=== PATIENT | male | born 1975 | race Caucasian/White ===

== ENCOUNTER 2020-04-21 23:56 | Observation (INO) ==
[2020-04-22 00:50] LABS: Basophils # 0.1 10*3/uL (0.0-0.2); Basophils % 0.6 % (0.0-0.8); Eosinophils # 0.1 10*3/uL (0.0-0.87); Eosinophils % 1.1 % (0.00-10.9); Hematocrit 43.8 VOL% (42.0-52.0); Hemoglobin 14.6 GM/DL (14.0-18.0); Immature Granulocytes % 0.6 %; Immature Granulocytes Absolute 0.07 #; Lymphocytes # 2.7 10*3/uL (1.4-4.0); Mean Corpuscular HGB Conc 33.3 GM/DL (32-36); Mean Corpuscular Volume 88.3 FL (87-102); Mean Platelet Volume 10.4 FL (9.6-12.0); Monocytes % 10.6 % (1.7-12.7); Neutrophils % 63.1 % (38.7-73.9); Platelet Count 246 T/CUMM (130-400); Red Blood Count 4.96 MC/CUMM (3.8-5.5); Red Cell Distribution Width 14.2 % (9.3-17.3); White Blood Count 11.3 T/CUMM (4-12)
[2020-04-22 01:12] LABS: Alanine Aminotransferase 88 U/L (16-61); Albumin 3.6 G/DL (3.4-5.0); Alkaline Phosphatase 103 U/L (45-117); Aspartate Amino Transferase 37 U/L (0-37); Bilirubin,Total < 0.39 MG/DL (0.2-1.0); Blood Urea Nitrogen 19 MG/DL (7-18); Calcium 9.4 MG/DL (8.5-10.1); Estimated Glom Filtration Rate 108 ML/MIN; Ferritin 91.7 ng/ml (26-388); Glucose 111 MG/DL (74-106); Osmolality,Calculated 277.7 MOS/KG (273-304); Total Protein 8.1 G/DL (6.4-8.3)
[2020-04-22] MEDS ORDERED: GLUCAGON 1 MG VIAL IM PRN (03:46)
[2020-04-22] MEDS ORDERED: NITROGLYCERIN SL 0.4 MG TABLET SL PRN (03:46)
[2020-04-22] MEDS ORDERED: ONDANSETRON 4 MG/2 ML VIAL IV PRN (03:46)
[2020-04-22] MEDS ORDERED: DEXTROSE 50% 25 GM/50 ML VIAL IV PRN (03:46)
[2020-04-22] MEDS ORDERED: POTASSIUM CHLORIDE 20 MEQ TABLET PO STA (03:46)
[2020-04-22] MEDS ORDERED: ALUM/MAG/SIMETH/LIDO VISC 1:1 30 ML BOTTLE PO STA (04:19)
[2020-04-22] MEDS ORDERED: SODIUM CHLORIDE 0.9% 100 ML IV ONE (04:46)
[2020-04-22] MEDS: cefTRIAXone 1,000 MG in SYRINGE 1 EACH IV SCH (05:04)
[2020-04-22 05:42] LABS: Barbiturates Screen,Urine Negative (Negative); Benzodiazepines Screen,Urine Negative (Negative); Cannabinoid Screen,Urine Negative (Negative); Opiate Screen,Urine Negative (Negative); Phencyclidine Screen,Urine Negative (Negative)
[2020-04-22] MEDS ORDERED: PNEUMOCOCCAL VACCINE (23 VALENT) 0.5 ML VIAL IM ONE (08:28)
[2020-04-22 09:28] LABS: Risk Ratio 5.59; Thyroid Stimulating Hormone 1.03 uIU/ml (0.358-3.74); VLDL CHOLESTEROL 19.4 MG/DL
[2020-04-22 09:36] LABS: Calcium 9.4 MG/DL (8.5-10.1); Osmolality,Calculated 284.3 MOS/KG (273-304)
[2020-04-22] MEDS: POTASSIUM CHLORIDE 20 MEQ TABLET PO PRN ×2 (10:31→13:41)
[2020-04-22] MEDS: ENOXAPARIN 40 MG/0.4 ML SYRINGE SUBCUT SCH (10:33)
[2020-04-22] MEDS ORDERED: ALBUTEROL/IPRATROPIUM 3 ML NEB RESP TX PRN (10:41)
[2020-04-22] MEDS ORDERED: ALBUTEROL 2.5 MG/3 ML NEB RESP TX PRN (10:41)
[2020-04-22] MEDS: [UNRECOGNIZED DRUG - OTHER] INH SCH (11:17)
[2020-04-22] MEDS ORDERED: METOPROLOL SUCCINATE XL 100 MG TABLET PO SCH (13:00)
[2020-04-22] MEDS ORDERED: predniSONE 20 MG TABLET PO SCH (13:00)
[2020-04-22] MEDS: ALBUTEROL/IPRATROPIUM 3 ML NEB RESP TX SCH ×2 (13:35→18:40)
[2020-04-22] MEDS: LOSARTAN 50 MG TABLET PO SCH (13:43)
[2020-04-22] MEDS: hydroCHLOROthiazide 12.5 MG CAPSULE PO SCH (13:44)
[2020-04-22] MEDS: ACETAMINOPHEN 325 MG TABLET PO PRN ×2 (14:19→21:01)
[2020-04-23] MEDS: ALBUTEROL/IPRATROPIUM 3 ML NEB RESP TX SCH ×4 (00:15→19:42)
[2020-04-23] MEDS: cefTRIAXone 1,000 MG in SYRINGE 1 EACH IV SCH (04:28)
[2020-04-23] MEDS ORDERED: methylPREDNISolone SOD SUC 40 MG/1 ML VIAL IV ONE (07:38)
[2020-04-23 07:58] LABS: Basophils # 0.1 10*3/uL (0.0-0.2); Basophils % 0.5 % (0.0-0.8); Eosinophils # 0.2 10*3/uL (0.0-0.87); Eosinophils % 1.9 % (0.00-10.9); Hematocrit 43.8 VOL% (42.0-52.0); Hemoglobin 14.6 GM/DL (14.0-18.0); Immature Granulocytes % 0.6 %; Immature Granulocytes Absolute 0.06 #; Lymphocytes % 19.1 % (21.2-54.2); Mean Corpuscular HGB Conc 33.3 GM/DL (32-36); Mean Platelet Volume 10.4 FL (9.6-12.0); Monocytes % 8.7 % (1.7-12.7); Neutrophils % 69.2 % (38.7-73.9); Platelet Count 232 T/CUMM (130-400); Red Blood Count 4.98 MC/CUMM (3.8-5.5); Red Cell Distribution Width 14.5 % (9.3-17.3); White Blood Count 10.2 T/CUMM (4-12)
[2020-04-23] MEDS ORDERED: methylPREDNISolone SOD SUC 40 MG/1 ML VIAL IV SCH (08:00)
[2020-04-23 08:17] LABS: Calcium 9.1 MG/DL (8.5-10.1); Osmolality,Calculated 281.4 MOS/KG (273-304)
[2020-04-23 08:22] LABS: Troponin I < 0.015 NG/ML (0.00-0.045)
[2020-04-23] MEDS: [UNRECOGNIZED DRUG - OTHER] INH SCH (08:45)
[2020-04-23] MEDS: LOSARTAN 50 MG TABLET PO SCH (08:56)
[2020-04-23] MEDS: ACETAMINOPHEN 325 MG TABLET PO PRN ×2 (08:56→20:34)
[2020-04-23] MEDS: POTASSIUM CHLORIDE 20 MEQ TABLET PO SCH (08:56)
[2020-04-23] MEDS: hydroCHLOROthiazide 12.5 MG CAPSULE PO SCH (08:58)
[2020-04-23] MEDS: COENZYME Q10 100 MG CAPSULE PO SCH (08:58)
[2020-04-23] MEDS: MONTELUKAST 10 MG TABLET PO SCH (08:58)
[2020-04-23] MEDS: MULTIVITAMIN (CENTRUM) TABLET PO SCH (08:58)
[2020-04-23] MEDS: ENOXAPARIN 40 MG/0.4 ML SYRINGE SUBCUT SCH (09:01)
[2020-04-23] MEDS ORDERED: ALPRAZolam 0.25 MG TABLET PO PRN (10:46)
[2020-04-23] MEDS ORDERED: hydrALAZINE 20 MG/1 ML VIAL IV PRN (11:02)
[2020-04-23] MEDS: DOXYCYCLINE HYCLATE 100 MG CAPSULE PO SCH ×2 (11:10→20:34)
[2020-04-23 11:53] LABS: ABG Base Excess 0.6 MMOL/L (-2.5-2.5); ABG Oxygen Saturation 99.3 % (95-100); ABG PCO2 25.3 MM HG (35-48); ABG PH 7.537 (7.35-7.45)
[2020-04-23] MEDS ORDERED: DOCUSATE SODIUM 100 MG CAPSULE PO PRN (20:07)
[2020-04-24] MEDS: ACETAMINOPHEN 325 MG TABLET PO PRN ×3 (00:34→22:35)
[2020-04-24] MEDS: ALBUTEROL/IPRATROPIUM 3 ML NEB RESP TX SCH ×4 (02:34→20:26)
[2020-04-24] MEDS: cefTRIAXone 1,000 MG in SYRINGE 1 EACH IV SCH (05:06)
[2020-04-24 08:12] LABS: Basophils # 0.1 10*3/uL (0.0-0.2); Basophils % 0.4 % (0.0-0.8); Eosinophils # 0.1 10*3/uL (0.0-0.87); Eosinophils % 0.7 % (0.00-10.9); Hematocrit 41.6 VOL% (42.0-52.0); Hemoglobin 13.9 GM/DL (14.0-18.0); Immature Granulocytes % 0.8 %; Immature Granulocytes Absolute 0.09 #; Lymphocytes # 2.5 10*3/uL (1.4-4.0); Lymphocytes % 21.1 % (21.2-54.2); Mean Corpuscular HGB Conc 33.4 GM/DL (32-36); Mean Corpuscular Volume 86.7 FL (87-102); Mean Platelet Volume 10.7 FL (9.6-12.0); Monocytes % 8.7 % (1.7-12.7); Neutrophils % 68.3 % (38.7-73.9); Platelet Count 218 T/CUMM (130-400); Red Cell Distribution Width 14.3 % (9.3-17.3); White Blood Count 11.8 T/CUMM (4-12)
[2020-04-24 08:36] LABS: Calcium 9.5 MG/DL (8.5-10.1); Osmolality,Calculated 280.4 MOS/KG (273-304)
[2020-04-24] MEDS: ENOXAPARIN 40 MG/0.4 ML SYRINGE SUBCUT SCH (09:43)
[2020-04-24] MEDS: [UNRECOGNIZED DRUG - OTHER] INH SCH (09:43)
[2020-04-24] MEDS: MONTELUKAST 10 MG TABLET PO SCH (09:44)
[2020-04-24] MEDS: POTASSIUM CHLORIDE 20 MEQ TABLET PO SCH (09:44)
[2020-04-24] MEDS: hydroCHLOROthiazide 12.5 MG CAPSULE PO SCH (09:44)
[2020-04-24] MEDS: LOSARTAN 50 MG TABLET PO SCH (09:44)
[2020-04-24] MEDS: predniSONE 20 MG TABLET PO SCH ×2 (09:45→20:43)
[2020-04-24] MEDS: MULTIVITAMIN (CENTRUM) TABLET PO SCH (09:45)
[2020-04-24] MEDS: COENZYME Q10 100 MG CAPSULE PO SCH (09:45)
[2020-04-24] MEDS: DOXYCYCLINE HYCLATE 100 MG CAPSULE PO SCH ×2 (09:46→20:43)
[2020-04-24] MEDS: FLUTICASONE/SALMETEROL 250-50 DISKUS 14 DOSE INH SCH (20:42)
[2020-04-25] MEDS: ALBUTEROL/IPRATROPIUM 3 ML NEB RESP TX SCH ×2 (00:42→08:24)
[2020-04-25] MEDS: cefTRIAXone 1,000 MG in SYRINGE 1 EACH IV SCH (05:01)
[2020-04-25 05:39] LABS: Calcium 9.4 MG/DL (8.5-10.1); Osmolality,Calculated 284.4 MOS/KG (273-304)
[2020-04-25] MEDS: ENOXAPARIN 40 MG/0.4 ML SYRINGE SUBCUT SCH (08:59)
[2020-04-25] MEDS: COENZYME Q10 100 MG CAPSULE PO SCH (09:00)
[2020-04-25] MEDS: hydroCHLOROthiazide 12.5 MG CAPSULE PO SCH (09:00)
[2020-04-25] MEDS: predniSONE 20 MG TABLET PO SCH (09:01)
[2020-04-25] MEDS: MULTIVITAMIN (CENTRUM) TABLET PO SCH (09:01)
[2020-04-25] MEDS: POTASSIUM CHLORIDE 20 MEQ TABLET PO SCH (09:01)
[2020-04-25] MEDS: LOSARTAN 50 MG TABLET PO SCH (09:01)
[2020-04-25] MEDS: MONTELUKAST 10 MG TABLET PO SCH (09:01)
[2020-04-25] MEDS: [UNRECOGNIZED DRUG - OTHER] INH SCH (09:02)
[2020-04-25] MEDS: FLUTICASONE/SALMETEROL 250-50 DISKUS 14 DOSE INH SCH (09:02)
[2020-04-25] MEDS: DOXYCYCLINE HYCLATE 100 MG CAPSULE PO SCH (09:20)
[2020-04-25 12:46] VITALS: BP 138/69
== END 2020-04-25 14:00 | disposition home or self-care (01) ==
LOC: N.ED 23:56 → N.EDINP 23:56 → SUATTDRO 04-22 03:46 → N.TELES 04-22 07:31
PROVIDERS: ADMIT Emergency Medicine; ATTEND Internal Medicine

== ENCOUNTER 2020-11-26 15:00 | Inpatient (IN) ==
[2020-11-26] MEDS ORDERED: NITROGLYCERIN SL 0.4 MG TABLET SL PRN ×2 (15:25→17:50)
[2020-11-26 15:45] LABS: Basophils # 0.1 10*3/uL (0.0-0.2); Basophils % 1.1 % (0.0-0.8); Eosinophils # 0.2 10*3/uL (0.0-0.87); Eosinophils % 2.4 % (0.00-10.9); Hematocrit 44.7 VOL% (42.0-52.0); Hemoglobin 14.9 GM/DL (14.0-18.0); Immature Granulocytes % 0.5 %; Immature Granulocytes Absolute 0.04 #; Lymphocytes # 1.9 10*3/uL (1.4-4.0); Lymphocytes % 23.2 % (21.2-54.2); Mean Corpuscular HGB Conc 33.3 GM/DL (32-36); Mean Corpuscular Volume 87.8 FL (87-102); Mean Platelet Volume 9.8 FL (9.6-12.0); Monocytes % 9.9 % (1.7-12.7); Neutrophils % 62.9 % (38.7-73.9); Platelet Count 212 T/CUMM (130-400); Red Blood Count 5.09 MC/CUMM (3.8-5.5); Red Cell Distribution Width 13.9 % (9.3-17.3); White Blood Count 8.3 T/CUMM (4-12)
[2020-11-26 16:09] LABS: INR 1.1; PT Patient Result 12.1 SECS (9.8-11.9)
[2020-11-26 16:21] LABS: Albumin 3.4 G/DL (3.4-5.0); Bilirubin,Total 0.7 MG/DL (0.2-1.0); Calcium 9.3 MG/DL (8.5-10.1); Osmolality,Calculated 272.8 MOS/KG (273-304); Potassium 3.2 MMOL/L (3.5-5.1); Total Protein 7.9 G/DL (5.0-7.5)
[2020-11-26] MEDS ORDERED: POTASSIUM CHLORIDE 20 MEQ TABLET PO STA (16:57)
[2020-11-26] MEDS ORDERED: GLUCAGON 1 MG VIAL IM PRN (17:44)
[2020-11-26] MEDS ORDERED: DEXTROSE 50% 25 GM/50 ML VIAL IV PRN (17:44)
[2020-11-26] MEDS ORDERED: hydrALAZINE 20 MG/1 ML VIAL IV PRN (17:52)
[2020-11-26] MEDS: ENOXAPARIN 40 MG/0.4 ML SYRINGE SUBCUT SCH (22:43)
[2020-11-26] MEDS: ALBUTEROL 2.5 MG/3 ML NEB RESP TX PRN (22:44)
[2020-11-27 06:11] LABS: Basophils # 0.1 10*3/uL (0.0-0.2); Basophils % 0.8 % (0.0-0.8); Eosinophils # 0.2 10*3/uL (0.0-0.87); Eosinophils % 2.8 % (0.00-10.9); Hematocrit 44.2 VOL% (42.0-52.0); Immature Granulocytes % 0.8 %; Immature Granulocytes Absolute 0.06 #; Lymphocytes # 2.2 10*3/uL (1.4-4.0); Lymphocytes % 27.7 % (21.2-54.2); Mean Corpuscular HGB Conc 33.9 GM/DL (32-36); Mean Corpuscular Volume 87.2 FL (87-102); Mean Platelet Volume 10.6 FL (9.6-12.0); Monocytes % 11.3 % (1.7-12.7); Neutrophils % 56.6 % (38.7-73.9); Platelet Count 180 T/CUMM (130-400); Red Blood Count 5.07 MC/CUMM (3.8-5.5); Red Cell Distribution Width 14.1 % (9.3-17.3); White Blood Count 7.8 T/CUMM (4-12)
[2020-11-27 06:56] LABS: Calcium 9.3 MG/DL (8.5-10.1); Osmolality,Calculated 281.4 MOS/KG (273-304); Potassium 3.4 MMOL/L (3.5-5.1); Risk Ratio 5.71; Thyroid Stimulating Hormone 1.1 uIU/ml (0.358-3.74); VLDL CHOLESTEROL 25.6 MG/DL
[2020-11-27] MEDS: ALBUTEROL 2.5 MG/3 ML NEB RESP TX PRN ×2 (08:04→13:40)
[2020-11-27] MEDS ORDERED: hydroCHLOROthiazide 12.5 MG CAPSULE PO SCH (09:00)
[2020-11-27] MEDS ORDERED: POTASSIUM CHLORIDE 10 MEQ TABLET PO SCH (09:00)
[2020-11-27] MEDS ORDERED: METOPROLOL SUCCINATE XL 100 MG TABLET PO SCH (09:00)
[2020-11-27] MEDS ORDERED: LOSARTAN 50 MG TABLET PO SCH (09:00)
[2020-11-27] MEDS ORDERED: NON-FORMULARY MEDICATION (Fluticasone Furoate-Vilanterol [Breo Ellipta] 200-25 mcg/dose Bl INH SCH (09:00)
[2020-11-27] MEDS: POTASSIUM CHLORIDE 20 MEQ TABLET PO SCH (09:42)
[2020-11-27] MEDS: PANTOPRAZOLE 40 MG TABLET PO SCH (09:42)
[2020-11-27] MEDS: FUROSEMIDE 20 MG TABLET PO SCH (09:42)
[2020-11-27] MEDS: COENZYME Q10 100 MG CAPSULE PO SCH (09:42)
[2020-11-27] MEDS: METHOCARBAMOL 750 MG TABLET PO SCH (09:43)
[2020-11-27] MEDS: ASPIRIN EC 81 MG TABLET PO SCH (09:43)
[2020-11-27] MEDS: MONTELUKAST 10 MG TABLET PO SCH (09:43)
[2020-11-27] MEDS ORDERED: POTASSIUM CHLORIDE 20 MEQ TABLET PO ONE (16:37)
[2020-11-27] MEDS ORDERED: MAGNESIUM HYDROXIDE SUSP 30 ML UDCUP PO PRN ×2 (17:31→17:37)
[2020-11-27] MEDS: FLUTICASONE/SALMETEROL 250-50 DISKUS 14 DOSE INH SCH ×2 (17:32→21:05)
[2020-11-27] MEDS ORDERED: ALBUTEROL/IPRATROPIUM 3 ML NEB RESP TX PRN (17:46)
[2020-11-27] MEDS: ALBUTEROL/IPRATROPIUM 3 ML NEB RESP TX SCH (19:05)
[2020-11-27] MEDS: DORNASE ALFA 2.5 MG/2.5 ML VIAL RESP TX SCH (19:10)
[2020-11-27] MEDS: FAMOTIDINE 20 MG TABLET PO SCH (22:05)
[2020-11-27] MEDS: ENOXAPARIN 40 MG/0.4 ML SYRINGE SUBCUT SCH (22:06)
[2020-11-28] MEDS: ALBUTEROL/IPRATROPIUM 3 ML NEB RESP TX SCH ×4 (00:25→18:43)
[2020-11-28 06:02] LABS: Calcium 8.8 MG/DL (8.5-10.1); Potassium 3.7 MMOL/L (3.5-5.1)
[2020-11-28] MEDS: DORNASE ALFA 2.5 MG/2.5 ML VIAL RESP TX SCH ×2 (07:42→18:43)
[2020-11-28] MEDS: PANTOPRAZOLE 40 MG TABLET PO SCH (08:42)
[2020-11-28] MEDS: MONTELUKAST 10 MG TABLET PO SCH (08:42)
[2020-11-28] MEDS: MULTIVITAMIN (CENTRUM) TABLET PO SCH (08:43)
[2020-11-28] MEDS: COENZYME Q10 100 MG CAPSULE PO SCH (08:44)
[2020-11-28] MEDS: METHOCARBAMOL 750 MG TABLET PO SCH ×3 (08:44→21:21)
[2020-11-28] MEDS: ASPIRIN EC 81 MG TABLET PO SCH (08:44)
[2020-11-28] MEDS: FUROSEMIDE 20 MG TABLET PO SCH (08:45)
[2020-11-28] MEDS: POTASSIUM CHLORIDE 20 MEQ TABLET PO SCH (08:46)
[2020-11-28] MEDS: carvediloL 12.5 MG TABLET PO SCH ×2 (08:56→21:19)
[2020-11-28] MEDS: FLUTICASONE/SALMETEROL 250-50 DISKUS 14 DOSE INH SCH ×2 (08:57→21:21)
[2020-11-28] MEDS ORDERED: hydroCHLOROthiazide 12.5 MG CAPSULE PO SCH (09:00)
[2020-11-28] MEDS: MEROPENEM 500 MG in SODIUM CHLORIDE 0.9% 100 ML IV SCH ×2 (13:41→21:21)
[2020-11-28] MEDS ORDERED: SODIUM CHLORIDE 0.9% 500 ML IV ONE (14:59)
[2020-11-28] MEDS ORDERED: POTASSIUM CHLORIDE 20 MEQ TABLET PO ONE (15:00)
[2020-11-28] MEDS: FAMOTIDINE 20 MG TABLET PO SCH (21:19)
[2020-11-28] MEDS: ENOXAPARIN 40 MG/0.4 ML SYRINGE SUBCUT SCH (21:20)
[2020-11-29] MEDS: ALBUTEROL/IPRATROPIUM 3 ML NEB RESP TX SCH ×4 (01:13→20:13)
[2020-11-29] MEDS: MEROPENEM 500 MG in SODIUM CHLORIDE 0.9% 100 ML IV SCH ×4 (04:19→21:45)
[2020-11-29 06:13] LABS: PT Patient Result 10.9 SECS (9.8-11.9); Partial Thromboplastin Time 26.7 SECS (23.9-33.8)
[2020-11-29 06:14] LABS: Basophils # 0.1 10*3/uL (0.0-0.2); Basophils % 1.1 % (0.0-0.8); Eosinophils # 0.3 10*3/uL (0.0-0.87); Eosinophils % 4.6 % (0.00-10.9); Hematocrit 42.2 VOL% (42.0-52.0); Hemoglobin 14.1 GM/DL (14.0-18.0); Immature Granulocytes % 0.7 %; Immature Granulocytes Absolute 0.04 #; Lymphocytes # 1.6 10*3/uL (1.4-4.0); Lymphocytes % 28.8 % (21.2-54.2); Mean Corpuscular HGB Conc 33.4 GM/DL (32-36); Mean Corpuscular Volume 88.7 FL (87-102); Monocytes % 10.5 % (1.7-12.7); Neutrophils % 54.3 % (38.7-73.9); Platelet Count 182 T/CUMM (130-400); Red Blood Count 4.76 MC/CUMM (3.8-5.5); Red Cell Distribution Width 13.7 % (9.3-17.3); White Blood Count 5.6 T/CUMM (4-12)
[2020-11-29 06:39] LABS: Atypical Lymphocytes Few; Eosinophils 4 % (0-10); Hypochromasia Slight; Lymphocytes 37 % (20-55); Microcytosis 1+; Segmented Neutrophils 50 % (50-85); Total Cells Counted 100
[2020-11-29 06:40] LABS: Platelet Estimate Adequate
[2020-11-29] MEDS ORDERED: diphenhydrAMINE 50 MG/1 ML VIAL IM ONE (07:30)
[2020-11-29] MEDS ORDERED: HYDROmorphone 2 MG/1 ML VIAL IV ONE (07:30)
[2020-11-29] MEDS ORDERED: BENZONATATE 100 MG CAPSULE PO ONE (07:30)
[2020-11-29] MEDS: DORNASE ALFA 2.5 MG/2.5 ML VIAL RESP TX SCH ×2 (07:35→20:13)
[2020-11-29] MEDS ORDERED: LIDOCAINE 1% 20 ML VIAL MISC INJ ONE (08:00)
[2020-11-29] MEDS ORDERED: LIDOCAINE 2% VISCOUS 100 ML BOTTLE SWISH/SPIT ONE (08:00)
[2020-11-29] MEDS ORDERED: LIDOCAINE 2% 20 ML VIAL RESP TX ONE (08:00)
[2020-11-29] MEDS ORDERED: MIDAZOLAM 2 MG/2 ML VIAL ONE (08:40)
[2020-11-29] MEDS ORDERED: diphenhydrAMINE 2% CREAM 28 GM TUBE TOP PRN (10:19)
[2020-11-29] MEDS: ASPIRIN EC 81 MG TABLET PO SCH (13:31)
[2020-11-29] MEDS: COENZYME Q10 100 MG CAPSULE PO SCH (13:31)
[2020-11-29] MEDS: POTASSIUM CHLORIDE 20 MEQ TABLET PO SCH (13:31)
[2020-11-29] MEDS: FLUTICASONE/SALMETEROL 250-50 DISKUS 14 DOSE INH SCH ×2 (13:31→21:23)
[2020-11-29] MEDS: PANTOPRAZOLE 40 MG TABLET PO SCH (13:32)
[2020-11-29] MEDS: METHOCARBAMOL 750 MG TABLET PO SCH ×2 (13:32→21:14)
[2020-11-29] MEDS: MONTELUKAST 10 MG TABLET PO SCH (13:32)
[2020-11-29] MEDS: carvediloL 12.5 MG TABLET PO SCH ×2 (13:32→21:15)
[2020-11-29] MEDS: FUROSEMIDE 20 MG TABLET PO SCH (13:32)
[2020-11-29] MEDS: MULTIVITAMIN (CENTRUM) TABLET PO SCH (13:35)
[2020-11-29 15:08] LABS: Calcium 8.3 MG/DL (8.5-10.1); Osmolality,Calculated 285.1 MOS/KG (273-304); Potassium 3.5 MMOL/L (3.5-5.1)
[2020-11-29] MEDS: FAMOTIDINE 20 MG TABLET PO SCH (21:14)
[2020-11-29] MEDS: ENOXAPARIN 40 MG/0.4 ML SYRINGE SUBCUT SCH (21:17)
[2020-11-30] MEDS: ALBUTEROL/IPRATROPIUM 3 ML NEB RESP TX SCH ×3 (00:45→13:36)
[2020-11-30] MEDS: MEROPENEM 500 MG in SODIUM CHLORIDE 0.9% 100 ML IV SCH ×2 (03:15→08:34)
[2020-11-30 05:39] LABS: Basophils # 0.1 10*3/uL (0.0-0.2); Basophils % 0.8 % (0.0-0.8); Eosinophils # 0.3 10*3/uL (0.0-0.87); Eosinophils % 3.6 % (0.00-10.9); Hematocrit 42.2 VOL% (42.0-52.0); Hemoglobin 13.8 GM/DL (14.0-18.0); Immature Granulocytes % 0.4 %; Immature Granulocytes Absolute 0.03 #; Lymphocytes # 1.9 10*3/uL (1.4-4.0); Lymphocytes % 25.5 % (21.2-54.2); Mean Corpuscular HGB Conc 32.7 GM/DL (32-36); Mean Corpuscular Volume 89.6 FL (87-102); Mean Platelet Volume 10.1 FL (9.6-12.0); Monocytes % 9.3 % (1.7-12.7); Neutrophils % 60.4 % (38.7-73.9); Platelet Count 178 T/CUMM (130-400); Red Blood Count 4.71 MC/CUMM (3.8-5.5); Red Cell Distribution Width 13.7 % (9.3-17.3); White Blood Count 7.5 T/CUMM (4-12)
[2020-11-30 06:09] LABS: Calcium 8.8 MG/DL (8.5-10.1); Osmolality,Calculated 279.4 MOS/KG (273-304); Potassium 3.8 MMOL/L (3.5-5.1)
[2020-11-30] MEDS: DORNASE ALFA 2.5 MG/2.5 ML VIAL RESP TX SCH (08:20)
[2020-11-30] MEDS: POTASSIUM CHLORIDE 20 MEQ TABLET PO SCH (08:32)
[2020-11-30] MEDS: ASPIRIN EC 81 MG TABLET PO SCH (08:32)
[2020-11-30] MEDS: COENZYME Q10 100 MG CAPSULE PO SCH (08:32)
[2020-11-30] MEDS: METHOCARBAMOL 750 MG TABLET PO SCH (08:32)
[2020-11-30] MEDS: MONTELUKAST 10 MG TABLET PO SCH (08:33)
[2020-11-30] MEDS: carvediloL 12.5 MG TABLET PO SCH (08:33)
[2020-11-30] MEDS: PANTOPRAZOLE 40 MG TABLET PO SCH (08:33)
[2020-11-30] MEDS: FUROSEMIDE 20 MG TABLET PO SCH (08:33)
[2020-11-30] MEDS: MULTIVITAMIN (CENTRUM) TABLET PO SCH (08:34)
[2020-11-30] MEDS: FLUTICASONE/SALMETEROL 250-50 DISKUS 14 DOSE INH SCH (08:37)
[2020-11-30 12:13] VITALS: BP 145/83
[2020-11-30] MEDS ORDERED: POTASSIUM CHLORIDE 20 MEQ TABLET PO SCH (21:00)
== END 2020-11-30 13:23 | disposition home or self-care (01) | DRG 178 ==
LOC: N.EDINP 15:00 → N.ED 15:00 → N.TELEN 18:12
PROVIDERS: ADMIT Internal Medicine; ATTEND Internal Medicine

== ENCOUNTER 2021-07-27 15:33 | Inpatient (IN) ==
[2021-07-27 17:02] LABS: Basophils # 0.1 10*3/uL (0.0-0.2); Basophils % 0.3 % (0.0-0.8); Eosinophils % 0.3 % (0.00-10.9); Hematocrit 46.2 VOL% (42.0-52.0); Hemoglobin 15.1 GM/DL (14.0-18.0); Lymphocytes # 1.8 10*3/uL (1.4-4.0); Lymphocytes % 12.2 % (21.2-54.2); Mean Corpuscular HGB Conc 32.7 GM/DL (32-36); Mean Corpuscular Volume 89.9 FL (87-102); Mean Platelet Volume 9.8 FL (9.6-12.0); Monocytes % 5.7 % (1.7-12.7); Neutrophils % 79.8 % (38.7-73.9); Platelet Count 239 T/CUMM (130-400); Red Blood Count 5.14 MC/CUMM (3.8-5.5); White Blood Count 14.3 T/CUMM (4-12)
[2021-07-27] MEDS ORDERED: diphenhydrAMINE CAP 25 MG CAPSULE PO PRN (17:26)
[2021-07-27] MEDS ORDERED: ALBUTEROL 2.5 MG/3 ML NEB RESP TX PRN (17:26)
[2021-07-27] MEDS ORDERED: DOCUSATE SODIUM 100 MG CAPSULE PO PRN (17:26)
[2021-07-27] MEDS ORDERED: CALCIUM CARBONATE CHEW 500 MG TABLET PO PRN (17:26)
[2021-07-27] MEDS ORDERED: ACETAMINOPHEN 325 MG TABLET PO PRN (17:26)
[2021-07-27] MEDS ORDERED: DEXTROSE 50% 25 GM/50 ML VIAL IV PRN (17:26)
[2021-07-27] MEDS ORDERED: guaiFENesin/DM ER 600-30 MG TABLET PO PRN (17:26)
[2021-07-27] MEDS ORDERED: GLUCAGON 1 MG VIAL IM PRN (17:26)
[2021-07-27 17:48] LABS: Albumin 3.6 G/DL (3.4-5.0); Bilirubin,Total 0.4 MG/DL (0.20-1.00); Calcium 9.6 MG/DL (8.5-10.1); Osmolality,Calculated 286.3 MOS/KG (273-304); Total Protein 7.6 G/DL (6.4-8.2)
[2021-07-27] MEDS ORDERED: CEFEPIME 1,000 MG in SODIUM CHLORIDE 0.9% 100 ML IV SCH (18:00)
[2021-07-27] MEDS: methylPREDNISolone SOD SUC 40 MG/1 ML VIAL IV SCH (18:18)
[2021-07-27] MEDS ORDERED: MEROPENEM 1,000 MG in SODIUM CHLORIDE 0.9% 100 ML IV SCH (19:00)
[2021-07-27] MEDS: ACETYLCYSTEINE 20% 800 MG/4 ML VIAL RESP TX SCH (20:25)
[2021-07-27] MEDS: ALBUTEROL/IPRATROPIUM 3 ML NEB RESP TX SCH (20:25)
[2021-07-27] MEDS: TOBRAMYCIN 80 MG/2 ML VIAL RESP TX SCH (20:55)
[2021-07-27] MEDS ORDERED: ACETYLCYSTEINE 20% 800 MG/4 ML VIAL RESP TX SCH (21:00)
[2021-07-27] MEDS: GABAPENTIN 300 MG CAPSULE PO SCH (21:17)
[2021-07-27] MEDS: carvediloL 25 MG TABLET PO SCH (21:18)
[2021-07-27] MEDS: THEOPHYLLINE ER 300 MG TABLET PO SCH (21:18)
[2021-07-27] MEDS: PANTOPRAZOLE 40 MG VIAL IV SCH (21:26)
[2021-07-27] MEDS: hydrALAZINE 20 MG/1 ML VIAL IV PRN (21:28)
[2021-07-27] MEDS: MEROPENEM 500 MG in SODIUM CHLORIDE 0.9% 100 ML IV SCH (21:35)
[2021-07-28] MEDS: methylPREDNISolone SOD SUC 40 MG/1 ML VIAL IV SCH ×3 (00:50→18:32)
[2021-07-28] MEDS: ALBUTEROL/IPRATROPIUM 3 ML NEB RESP TX SCH ×3 (01:10→14:25)
[2021-07-28] MEDS: ONDANSETRON 4 MG/2 ML VIAL IV PRN ×3 (02:14→15:57)
[2021-07-28] MEDS: MEROPENEM 500 MG in SODIUM CHLORIDE 0.9% 100 ML IV SCH ×3 (05:29→19:51)
[2021-07-28] MEDS: ALUMINUM/MAGNES/SIMETH MAX STR 30 ML UDCUP PO PRN ×2 (05:32→11:16)
[2021-07-28 06:18] LABS: Basophils % 0.2 % (0.0-0.8); Hematocrit 42.6 VOL% (42.0-52.0); Hemoglobin 14.2 GM/DL (14.0-18.0); Immature Granulocytes % 1.6 %; Immature Granulocytes Absolute 0.21 #; Lymphocytes # 1.2 10*3/uL (1.4-4.0); Lymphocytes % 8.9 % (21.2-54.2); Mean Corpuscular HGB Conc 33.3 GM/DL (32-36); Mean Corpuscular Volume 89.3 FL (87-102); Mean Platelet Volume 9.5 FL (9.6-12.0); Monocytes % 3.3 % (1.7-12.7); Platelet Count 220 T/CUMM (130-400); Red Blood Count 4.77 MC/CUMM (3.8-5.5); Red Cell Distribution Width 13.8 % (9.3-17.3); White Blood Count 12.9 T/CUMM (4-12)
[2021-07-28 06:45] LABS: Calcium 9.4 MG/DL (8.5-10.1); Osmolality,Calculated 279.1 MOS/KG (273-304); Potassium 3.8 MMOL/L (3.5-5.1)
[2021-07-28 06:52] LABS: Risk Ratio 4.47; Thyroid Stimulating Hormone 0.195 uIU/ml (0.358-3.74); VLDL Cholesterol 19.8 MG/DL
[2021-07-28] MEDS: TOBRAMYCIN 80 MG/2 ML VIAL RESP TX SCH ×2 (07:05→20:41)
[2021-07-28] MEDS: ACETYLCYSTEINE 20% 800 MG/4 ML VIAL RESP TX SCH ×4 (07:05→20:40)
[2021-07-28] MEDS: GABAPENTIN 300 MG CAPSULE PO SCH ×3 (09:03→21:29)
[2021-07-28] MEDS: MONTELUKAST 10 MG TABLET PO SCH (09:03)
[2021-07-28] MEDS: carvediloL 25 MG TABLET PO SCH ×2 (09:03→21:29)
[2021-07-28] MEDS: METHOCARBAMOL 750 MG TABLET PO SCH (09:03)
[2021-07-28] MEDS: THEOPHYLLINE ER 300 MG TABLET PO SCH ×2 (09:03→21:27)
[2021-07-28] MEDS: ASPIRIN EC 81 MG TABLET PO SCH (09:04)
[2021-07-28] MEDS: PANTOPRAZOLE 40 MG VIAL IV SCH ×2 (09:05→21:35)
[2021-07-28] MEDS: [UNRECOGNIZED DRUG - OTHER] INH SCH (09:20)
[2021-07-28] MEDS: FLUTICASONE FUROATE VILANTEROL INH SCH (09:20)
[2021-07-28 10:51] LABS: HIV Antigen/Antibody Result Nonreactive (Nonreactive)
[2021-07-28] MEDS ORDERED: ALBUTEROL 2.5 MG/3 ML NEB RESP TX SCH (13:00)
[2021-07-28] MEDS: MAGNESIUM CHLORIDE 64 MG TABLET PO SCH (14:48)
[2021-07-28] MEDS: FAMOTIDINE 20 MG TABLET PO SCH ×2 (14:49→21:28)
[2021-07-28] MEDS: BENZONATATE 100 MG CAPSULE PO SCH ×2 (14:49→21:31)
[2021-07-28] MEDS: COENZYME Q10 100 MG CAPSULE PO SCH (14:49)
[2021-07-28] MEDS: MULTIVITAMIN (CENTRUM) TABLET PO SCH (14:49)
[2021-07-28] MEDS: POTASSIUM CHLORIDE 20 MEQ TABLET PO SCH ×2 (14:49→21:31)
[2021-07-28] MEDS: ZINC GLUCONATE 50 MG TABLET PO SCH (14:50)
[2021-07-28] MEDS: hydrALAZINE 10 MG TABLET PO SCH ×2 (14:50→21:30)
[2021-07-28] MEDS: POLYETHYLENE GLYCOL POWDER 17 GM PACK PO SCH (14:52)
[2021-07-28] MEDS: ALBUTEROL 2.5 MG/3 ML NEB RESP TX SCH ×2 (14:52→20:40)
[2021-07-28] MEDS ORDERED: MECLIZINE 25 MG TABLET PO PRN (18:14)
[2021-07-28] MEDS: X PO SCH ×2 (18:19→21:32)
[2021-07-28] MEDS: ALBUTEROL 0.4 MG/ML 30 ML/BOTTLE PO SCH ×2 (18:30→22:30)
[2021-07-28] MEDS: INSULIN LISPRO 100 UNIT/ML SUBCUT SCH ×2 (18:40→22:31)
[2021-07-28] MEDS: BACILLUS COAGULANS CAPLET PO SCH (21:26)
[2021-07-28] MEDS: DOCUSATE SODIUM 100 MG CAPSULE PO SCH (21:27)
[2021-07-29] MEDS: methylPREDNISolone SOD SUC 40 MG/1 ML VIAL IV SCH ×3 (00:42→17:03)
[2021-07-29] MEDS: MEROPENEM 500 MG in SODIUM CHLORIDE 0.9% 100 ML IV SCH ×3 (04:12→18:30)
[2021-07-29 04:24] LABS: Basophils % 0.1 % (0.0-0.8); Hematocrit 42.7 VOL% (42.0-52.0); Hemoglobin 13.7 GM/DL (14.0-18.0); Immature Granulocytes % 1.6 %; Immature Granulocytes Absolute 0.21 #; Lymphocytes # 1.2 10*3/uL (1.4-4.0); Mean Corpuscular HGB Conc 32.1 GM/DL (32-36); Mean Platelet Volume 10.1 FL (9.6-12.0); Monocytes % 4.8 % (1.7-12.7); Neutrophils % 84.5 % (38.7-73.9); Platelet Count 231 T/CUMM (130-400); Red Blood Count 4.69 MC/CUMM (3.8-5.5)
[2021-07-29] MEDS: ONDANSETRON 4 MG/2 ML VIAL IV PRN ×4 (04:51→18:29)
[2021-07-29 06:11] LABS: Calcium 9.3 MG/DL (8.5-10.1); Osmolality,Calculated 286.4 MOS/KG (273-304); Potassium 4.3 MMOL/L (3.5-5.1)
[2021-07-29] MEDS: ALBUTEROL 2.5 MG/3 ML NEB RESP TX SCH ×4 (06:50→19:27)
[2021-07-29] MEDS: ACETYLCYSTEINE 20% 800 MG/4 ML VIAL RESP TX SCH ×4 (06:50→19:27)
[2021-07-29] MEDS: TOBRAMYCIN 80 MG/2 ML VIAL RESP TX SCH ×2 (06:50→19:27)
[2021-07-29] MEDS: ALBUTEROL 0.4 MG/ML 30 ML/BOTTLE PO SCH ×3 (09:12→17:01)
[2021-07-29] MEDS: INSULIN LISPRO 100 UNIT/ML SUBCUT SCH ×4 (09:12→22:37)
[2021-07-29] MEDS: PANTOPRAZOLE 40 MG VIAL IV SCH ×2 (09:15→21:47)
[2021-07-29] MEDS: BACILLUS COAGULANS CAPLET PO SCH ×2 (09:19→21:40)
[2021-07-29] MEDS: MONTELUKAST 10 MG TABLET PO SCH (09:19)
[2021-07-29] MEDS: GABAPENTIN 300 MG CAPSULE PO SCH ×3 (09:19→21:39)
[2021-07-29] MEDS: hydrALAZINE 10 MG TABLET PO SCH ×3 (09:19→21:39)
[2021-07-29] MEDS: BENZONATATE 100 MG CAPSULE PO SCH ×3 (09:19→21:39)
[2021-07-29] MEDS: MAGNESIUM CHLORIDE 64 MG TABLET PO SCH (09:19)
[2021-07-29] MEDS: COENZYME Q10 100 MG CAPSULE PO SCH (09:20)
[2021-07-29] MEDS: ZINC GLUCONATE 50 MG TABLET PO SCH (09:20)
[2021-07-29] MEDS: POTASSIUM CHLORIDE 20 MEQ TABLET PO SCH ×2 (09:20→21:39)
[2021-07-29] MEDS: RIVAROXABAN 10 MG TABLET PO SCH (09:20)
[2021-07-29] MEDS: carvediloL 25 MG TABLET PO SCH ×2 (09:20→21:39)
[2021-07-29] MEDS: ASPIRIN EC 81 MG TABLET PO SCH (09:20)
[2021-07-29] MEDS: MULTIVITAMIN (CENTRUM) TABLET PO SCH (09:20)
[2021-07-29] MEDS: THEOPHYLLINE ER 300 MG TABLET PO SCH ×2 (09:21→21:40)
[2021-07-29] MEDS: METHOCARBAMOL 750 MG TABLET PO SCH (09:21)
[2021-07-29] MEDS: DOCUSATE SODIUM 100 MG CAPSULE PO SCH ×2 (09:21→21:39)
[2021-07-29] MEDS: POLYETHYLENE GLYCOL POWDER 17 GM PACK PO SCH (09:25)
[2021-07-29] MEDS: X PO SCH ×4 (09:26→21:39)
[2021-07-29] MEDS: SUCRALFATE 1 GM TABLET PO SCH ×2 (11:53→17:00)
[2021-07-29] MEDS ORDERED: FUROSEMIDE 40 MG TABLET PO PRN (12:19)
[2021-07-29] MEDS: ROSUVASTATIN 20 MG TABLET PO SCH (21:40)
[2021-07-29] MEDS: ZALEPLON 5 MG CAPSULE PO PRN (21:40)
[2021-07-30] MEDS: methylPREDNISolone SOD SUC 40 MG/1 ML VIAL IV SCH ×3 (01:25→17:04)
[2021-07-30] MEDS: MEROPENEM 500 MG in SODIUM CHLORIDE 0.9% 100 ML IV SCH ×3 (03:45→18:16)
[2021-07-30] MEDS: ALBUTEROL 0.4 MG/ML 30 ML/BOTTLE PO SCH ×5 (05:21→20:41)
[2021-07-30 05:44] LABS: Basophils % 0.2 % (0.0-0.8); Hematocrit 44.6 VOL% (42.0-52.0); Hemoglobin 14.4 GM/DL (14.0-18.0); Immature Granulocytes % 2.2 %; Immature Granulocytes Absolute 0.29 #; Lymphocytes # 1.1 10*3/uL (1.4-4.0); Mean Corpuscular HGB Conc 32.3 GM/DL (32-36); Mean Corpuscular Volume 91.4 FL (87-102); Mean Platelet Volume 10.5 FL (9.6-12.0); Monocytes % 4.9 % (1.7-12.7); Neutrophils % 84.7 % (38.7-73.9); Platelet Count 229 T/CUMM (130-400); Red Blood Count 4.88 MC/CUMM (3.8-5.5); Red Cell Distribution Width 13.9 % (9.3-17.3); White Blood Count 13.3 T/CUMM (4-12)
[2021-07-30 06:06] LABS: Osmolality,Calculated 286.5 MOS/KG (273-304); Potassium 4.1 MMOL/L (3.5-5.1)
[2021-07-30] MEDS: ACETYLCYSTEINE 20% 800 MG/4 ML VIAL RESP TX SCH ×4 (08:05→19:55)
[2021-07-30] MEDS: ALBUTEROL 2.5 MG/3 ML NEB RESP TX SCH ×4 (08:05→19:56)
[2021-07-30] MEDS: TOBRAMYCIN 80 MG/2 ML VIAL RESP TX SCH ×2 (08:15→19:56)
[2021-07-30] MEDS: FLUTICASONE FUROATE VILANTEROL INH SCH ×2 (08:57→10:33)
[2021-07-30] MEDS: [UNRECOGNIZED DRUG - OTHER] INH SCH ×2 (08:57→10:33)
[2021-07-30] MEDS: THEOPHYLLINE ER 300 MG TABLET PO SCH ×2 (09:00→20:32)
[2021-07-30] MEDS: BACILLUS COAGULANS CAPLET PO SCH ×2 (09:10→20:32)
[2021-07-30] MEDS: BENZONATATE 100 MG CAPSULE PO SCH ×3 (09:10→20:32)
[2021-07-30] MEDS: RIVAROXABAN 10 MG TABLET PO SCH (09:12)
[2021-07-30] MEDS: DOCUSATE SODIUM 100 MG CAPSULE PO SCH ×2 (09:12→20:33)
[2021-07-30] MEDS: ASPIRIN EC 81 MG TABLET PO SCH (09:12)
[2021-07-30] MEDS: MAGNESIUM CHLORIDE 64 MG TABLET PO SCH (09:12)
[2021-07-30] MEDS: hydrALAZINE 10 MG TABLET PO SCH ×3 (09:12→20:33)
[2021-07-30] MEDS: carvediloL 25 MG TABLET PO SCH ×2 (09:12→20:33)
[2021-07-30] MEDS: hydroCHLOROthiazide 25 MG TABLET PO SCH (09:13)
[2021-07-30] MEDS: GABAPENTIN 300 MG CAPSULE PO SCH ×3 (09:13→20:32)
[2021-07-30] MEDS: MULTIVITAMIN (CENTRUM) TABLET PO SCH (09:13)
[2021-07-30] MEDS: SUCRALFATE 1 GM TABLET PO SCH ×3 (09:13→16:13)
[2021-07-30] MEDS: POTASSIUM CHLORIDE 20 MEQ TABLET PO SCH ×2 (09:13→20:32)
[2021-07-30] MEDS: MONTELUKAST 10 MG TABLET PO SCH (09:13)
[2021-07-30] MEDS: X PO SCH ×4 (09:14→20:33)
[2021-07-30] MEDS: INSULIN LISPRO 100 UNIT/ML SUBCUT SCH ×4 (09:34→20:41)
[2021-07-30] MEDS: POLYETHYLENE GLYCOL POWDER 17 GM PACK PO SCH (09:35)
[2021-07-30] MEDS: COENZYME Q10 100 MG CAPSULE PO SCH (09:35)
[2021-07-30] MEDS: ZINC GLUCONATE 50 MG TABLET PO SCH (09:35)
[2021-07-30] MEDS: METHOCARBAMOL 750 MG TABLET PO SCH (09:35)
[2021-07-30] MEDS: PANTOPRAZOLE 40 MG VIAL IV SCH ×2 (09:35→20:33)
[2021-07-30] MEDS: ONDANSETRON 4 MG/2 ML VIAL IV PRN ×2 (09:45→16:17)
[2021-07-30] MEDS: ROSUVASTATIN 20 MG TABLET PO SCH (20:32)
[2021-07-31] MEDS: methylPREDNISolone SOD SUC 40 MG/1 ML VIAL IV SCH ×3 (01:38→17:05)
[2021-07-31] MEDS: MEROPENEM 500 MG in SODIUM CHLORIDE 0.9% 100 ML IV SCH ×3 (02:33→18:03)
[2021-07-31] MEDS: hydrALAZINE 20 MG/1 ML VIAL IV PRN (04:14)
[2021-07-31 06:42] LABS: Basophils % 0.2 % (0.0-0.8); Hematocrit 43.9 VOL% (42.0-52.0); Hemoglobin 14.5 GM/DL (14.0-18.0); Immature Granulocytes % 4.2 %; Immature Granulocytes Absolute 0.51 #; Lymphocytes # 1.2 10*3/uL (1.4-4.0); Lymphocytes % 9.6 % (21.2-54.2); Mean Corpuscular Volume 90.1 FL (87-102); Mean Platelet Volume 10.2 FL (9.6-12.0); Monocytes % 6.3 % (1.7-12.7); Neutrophils % 79.7 % (38.7-73.9); Platelet Count 211 T/CUMM (130-400); Red Blood Count 4.87 MC/CUMM (3.8-5.5); Red Cell Distribution Width 13.8 % (9.3-17.3); White Blood Count 12.1 T/CUMM (4-12)
[2021-07-31 06:55] LABS: Calcium 9.1 MG/DL (8.5-10.1); Osmolality,Calculated 287.4 MOS/KG (273-304); Potassium 3.9 MMOL/L (3.5-5.1)
[2021-07-31 07:03] LABS: Lymphocytes 7 % (20-55); Platelet Estimate Adequate; Segmented Neutrophils 88 % (50-85); Total Cells Counted 100
[2021-07-31] MEDS: ALBUTEROL 2.5 MG/3 ML NEB RESP TX SCH ×5 (07:21→19:35)
[2021-07-31] MEDS: ACETYLCYSTEINE 20% 800 MG/4 ML VIAL RESP TX SCH ×5 (07:21→19:35)
[2021-07-31] MEDS: TOBRAMYCIN 80 MG/2 ML VIAL RESP TX SCH ×2 (07:43→20:00)
[2021-07-31] MEDS: INSULIN LISPRO 100 UNIT/ML SUBCUT SCH ×4 (07:49→22:34)
[2021-07-31] MEDS: SUCRALFATE 1 GM TABLET PO SCH ×3 (07:49→17:05)
[2021-07-31] MEDS: hydrALAZINE 10 MG TABLET PO SCH ×3 (08:00→20:56)
[2021-07-31] MEDS: FLUTICASONE FUROATE VILANTEROL INH SCH ×2 (08:00→08:37)
[2021-07-31] MEDS: BACILLUS COAGULANS CAPLET PO SCH ×2 (08:00→20:55)
[2021-07-31] MEDS: [UNRECOGNIZED DRUG - OTHER] INH SCH ×2 (08:00→08:37)
[2021-07-31] MEDS: carvediloL 25 MG TABLET PO SCH ×2 (08:01→20:56)
[2021-07-31] MEDS: DOCUSATE SODIUM 100 MG CAPSULE PO SCH ×2 (08:01→20:56)
[2021-07-31] MEDS: X PO SCH ×4 (08:01→20:57)
[2021-07-31] MEDS: GABAPENTIN 300 MG CAPSULE PO SCH ×3 (08:01→20:56)
[2021-07-31] MEDS: POTASSIUM CHLORIDE 20 MEQ TABLET PO SCH ×2 (08:01→20:56)
[2021-07-31] MEDS: ALBUTEROL 0.4 MG/ML 30 ML/BOTTLE PO SCH ×4 (08:02→20:57)
[2021-07-31] MEDS: BENZONATATE 100 MG CAPSULE PO SCH ×3 (08:02→20:56)
[2021-07-31] MEDS: THEOPHYLLINE ER 300 MG TABLET PO SCH ×2 (08:02→20:55)
[2021-07-31] MEDS: ONDANSETRON 4 MG/2 ML VIAL IV PRN ×2 (09:02→21:01)
[2021-07-31] MEDS: PANTOPRAZOLE 40 MG VIAL IV SCH ×2 (09:04→21:05)
[2021-07-31] MEDS: LACTATED RINGERS 1,000 ML IV SCH (09:07)
[2021-07-31] MEDS ORDERED: ONDANSETRON 4 MG/2 ML VIAL ONE (14:48)
[2021-07-31] MEDS ORDERED: LIDOCAINE 2% 5 ML VIAL ONE (14:48)
[2021-07-31] MEDS ORDERED: propofoL 200 MG/20 ML VIAL IV ONE (14:48)
[2021-07-31] MEDS: ZINC GLUCONATE 50 MG TABLET PO SCH (15:43)
[2021-07-31] MEDS: COENZYME Q10 100 MG CAPSULE PO SCH (15:43)
[2021-07-31] MEDS: MAGNESIUM CHLORIDE 64 MG TABLET PO SCH (15:43)
[2021-07-31] MEDS: ASPIRIN EC 81 MG TABLET PO SCH (15:43)
[2021-07-31] MEDS: hydroCHLOROthiazide 25 MG TABLET PO SCH (15:43)
[2021-07-31] MEDS: METHOCARBAMOL 750 MG TABLET PO SCH (15:43)
[2021-07-31] MEDS: MULTIVITAMIN (CENTRUM) TABLET PO SCH (15:43)
[2021-07-31] MEDS: POLYETHYLENE GLYCOL POWDER 17 GM PACK PO SCH (15:44)
[2021-07-31] MEDS: RIVAROXABAN 10 MG TABLET PO SCH (15:44)
[2021-07-31] MEDS: MONTELUKAST 10 MG TABLET PO SCH (15:48)
[2021-07-31] MEDS: FLUCONAZOLE 100 MG TABLET PO SCH (16:10)
[2021-07-31] MEDS: ROSUVASTATIN 20 MG TABLET PO SCH (20:55)
[2021-07-31] MEDS: ZALEPLON 5 MG CAPSULE PO PRN (20:56)
[2021-08-01] MEDS: methylPREDNISolone SOD SUC 40 MG/1 ML VIAL IV SCH ×3 (00:49→16:46)
[2021-08-01] MEDS: MEROPENEM 500 MG in SODIUM CHLORIDE 0.9% 100 ML IV SCH ×3 (04:07→21:23)
[2021-08-01 05:29] LABS: Basophils % 0.3 % (0.0-0.8); Hematocrit 44.7 VOL% (42.0-52.0); Hemoglobin 14.7 GM/DL (14.0-18.0); Immature Granulocytes % 2.4 %; Lymphocytes # 1.1 10*3/uL (1.4-4.0); Lymphocytes % 9.2 % (21.2-54.2); Mean Corpuscular HGB Conc 32.9 GM/DL (32-36); Mean Corpuscular Volume 92.2 FL (87-102); Mean Platelet Volume 10.7 FL (9.6-12.0); Monocytes % 5.7 % (1.7-12.7); Neutrophils % 82.4 % (38.7-73.9); Platelet Count 203 T/CUMM (130-400); Red Blood Count 4.85 MC/CUMM (3.8-5.5); Red Cell Distribution Width 13.9 % (9.3-17.3); White Blood Count 12.3 T/CUMM (4-12)
[2021-08-01 06:06] LABS: Calcium 9.4 MG/DL (8.5-10.1); Osmolality,Calculated 285.5 MOS/KG (273-304); Potassium 3.8 MMOL/L (3.5-5.1)
[2021-08-01] MEDS: ACETYLCYSTEINE 20% 800 MG/4 ML VIAL RESP TX SCH ×4 (07:15→19:54)
[2021-08-01] MEDS: ALBUTEROL 2.5 MG/3 ML NEB RESP TX SCH ×4 (07:15→19:54)
[2021-08-01] MEDS: TOBRAMYCIN 80 MG/2 ML VIAL RESP TX SCH ×2 (07:30→20:14)
[2021-08-01] MEDS: INSULIN LISPRO 100 UNIT/ML SUBCUT SCH ×4 (08:40→21:23)
[2021-08-01] MEDS: carvediloL 25 MG TABLET PO SCH ×2 (10:54→21:32)
[2021-08-01] MEDS: X PO SCH ×4 (10:54→21:31)
[2021-08-01] MEDS: COENZYME Q10 100 MG CAPSULE PO SCH (10:55)
[2021-08-01] MEDS: METHOCARBAMOL 750 MG TABLET PO SCH (10:55)
[2021-08-01] MEDS: BENZONATATE 100 MG CAPSULE PO SCH ×3 (10:55→21:32)
[2021-08-01] MEDS: SUCRALFATE 1 GM TABLET PO SCH ×3 (10:55→16:45)
[2021-08-01] MEDS: BACILLUS COAGULANS CAPLET PO SCH ×2 (10:55→21:31)
[2021-08-01] MEDS: POTASSIUM CHLORIDE 20 MEQ TABLET PO SCH ×2 (10:56→21:33)
[2021-08-01] MEDS: RIVAROXABAN 10 MG TABLET PO SCH (10:56)
[2021-08-01] MEDS: hydroCHLOROthiazide 25 MG TABLET PO SCH (10:56)
[2021-08-01] MEDS: hydrALAZINE 10 MG TABLET PO SCH ×3 (10:56→21:31)
[2021-08-01] MEDS: THEOPHYLLINE ER 300 MG TABLET PO SCH ×2 (10:56→21:31)
[2021-08-01] MEDS: FLUCONAZOLE 100 MG TABLET PO SCH (10:56)
[2021-08-01] MEDS: GABAPENTIN 300 MG CAPSULE PO SCH ×3 (10:56→21:31)
[2021-08-01] MEDS: ASPIRIN EC 81 MG TABLET PO SCH (10:57)
[2021-08-01] MEDS: MAGNESIUM CHLORIDE 64 MG TABLET PO SCH (10:57)
[2021-08-01] MEDS: MONTELUKAST 10 MG TABLET PO SCH (10:57)
[2021-08-01] MEDS: MULTIVITAMIN (CENTRUM) TABLET PO SCH (10:58)
[2021-08-01] MEDS: ONDANSETRON 4 MG/2 ML VIAL IV PRN ×3 (10:59→22:01)
[2021-08-01] MEDS: PANTOPRAZOLE 40 MG VIAL IV SCH ×2 (10:59→21:22)
[2021-08-01] MEDS: DOCUSATE SODIUM 100 MG CAPSULE PO SCH ×2 (11:20→21:31)
[2021-08-01] MEDS: POLYETHYLENE GLYCOL POWDER 17 GM PACK PO SCH (11:21)
[2021-08-01] MEDS: FLUTICASONE FUROATE VILANTEROL INH SCH (11:21)
[2021-08-01] MEDS: [UNRECOGNIZED DRUG - OTHER] INH SCH (11:21)
[2021-08-01] MEDS: ALBUTEROL 0.4 MG/ML 30 ML/BOTTLE PO SCH ×4 (11:24→21:32)
[2021-08-01] MEDS: LOSARTAN 25 MG TABLET PO SCH (15:31)
[2021-08-01] MEDS: ZINC GLUCONATE 50 MG TABLET PO SCH (15:31)
[2021-08-01] MEDS: LACTATED RINGERS 1,000 ML IV SCH (17:46)
[2021-08-01] MEDS: ROSUVASTATIN 20 MG TABLET PO SCH (21:31)
[2021-08-01] MEDS: ZALEPLON 5 MG CAPSULE PO PRN (22:00)
[2021-08-02] MEDS: methylPREDNISolone SOD SUC 40 MG/1 ML VIAL IV SCH ×4 (00:34→17:30)
[2021-08-02] MEDS: MEROPENEM 500 MG in SODIUM CHLORIDE 0.9% 100 ML IV SCH ×4 (03:57→22:22)
[2021-08-02] MEDS: ALBUTEROL 2.5 MG/3 ML NEB RESP TX SCH ×4 (07:25→19:40)
[2021-08-02] MEDS: ACETYLCYSTEINE 20% 800 MG/4 ML VIAL RESP TX SCH ×4 (07:25→19:40)
[2021-08-02] MEDS: TOBRAMYCIN 80 MG/2 ML VIAL RESP TX SCH ×2 (07:52→19:50)
[2021-08-02] MEDS: SUCRALFATE 1 GM TABLET PO SCH ×4 (11:43→18:03)
[2021-08-02] MEDS: INSULIN LISPRO 100 UNIT/ML SUBCUT SCH ×4 (11:43→22:35)
[2021-08-02] MEDS: LACTATED RINGERS 1,000 ML IV SCH (11:44)
[2021-08-02] MEDS: hydrALAZINE 10 MG TABLET PO SCH ×3 (11:44→22:21)
[2021-08-02] MEDS: RIVAROXABAN 10 MG TABLET PO SCH ×2 (11:44→14:52)
[2021-08-02] MEDS: DOCUSATE SODIUM 100 MG CAPSULE PO SCH ×3 (11:45→22:35)
[2021-08-02] MEDS: BACILLUS COAGULANS CAPLET PO SCH ×3 (11:45→22:20)
[2021-08-02] MEDS: COENZYME Q10 100 MG CAPSULE PO SCH ×2 (11:45→14:52)
[2021-08-02] MEDS: MULTIVITAMIN (CENTRUM) TABLET PO SCH ×2 (11:45→14:51)
[2021-08-02] MEDS: carvediloL 25 MG TABLET PO SCH ×3 (11:45→22:21)
[2021-08-02] MEDS: [UNRECOGNIZED DRUG - OTHER] INH SCH (11:46)
[2021-08-02] MEDS: LOSARTAN 25 MG TABLET PO SCH ×2 (11:46→14:58)
[2021-08-02] MEDS: hydroCHLOROthiazide 25 MG TABLET PO SCH ×2 (11:46→14:59)
[2021-08-02] MEDS: FLUCONAZOLE 100 MG TABLET PO SCH ×2 (11:46→14:56)
[2021-08-02] MEDS: FLUTICASONE FUROATE VILANTEROL INH SCH (11:46)
[2021-08-02] MEDS: POLYETHYLENE GLYCOL POWDER 17 GM PACK PO SCH (11:47)
[2021-08-02] MEDS: POTASSIUM CHLORIDE 20 MEQ TABLET PO SCH ×3 (11:47→22:20)
[2021-08-02] MEDS: PANTOPRAZOLE 40 MG VIAL IV SCH ×3 (11:48→22:19)
[2021-08-02] MEDS: X PO SCH ×4 (11:48→22:19)
[2021-08-02] MEDS: ALBUTEROL 0.4 MG/ML 30 ML/BOTTLE PO SCH ×4 (11:48→22:33)
[2021-08-02] MEDS: GABAPENTIN 300 MG CAPSULE PO SCH ×3 (11:48→22:21)
[2021-08-02] MEDS: METHOCARBAMOL 750 MG TABLET PO SCH ×2 (11:48→14:48)
[2021-08-02] MEDS: ZINC GLUCONATE 50 MG TABLET PO SCH ×2 (11:49→14:55)
[2021-08-02] MEDS: MAGNESIUM CHLORIDE 64 MG TABLET PO SCH ×2 (11:49→14:51)
[2021-08-02] MEDS: BENZONATATE 100 MG CAPSULE PO SCH ×3 (11:49→22:20)
[2021-08-02] MEDS: THEOPHYLLINE ER 300 MG TABLET PO SCH ×3 (11:49→22:20)
[2021-08-02] MEDS: MONTELUKAST 10 MG TABLET PO SCH ×2 (11:49→14:56)
[2021-08-02] MEDS: ASPIRIN EC 81 MG TABLET PO SCH ×2 (11:52→14:57)
[2021-08-02] MEDS: ONDANSETRON 4 MG/2 ML VIAL IV PRN ×2 (15:00→22:19)
[2021-08-02] MEDS: ROSUVASTATIN 20 MG TABLET PO SCH (22:20)
[2021-08-02] MEDS: HYDROmorphone 2 MG/1 ML VIAL IV PRN (22:32)
[2021-08-03] MEDS: methylPREDNISolone SOD SUC 40 MG/1 ML VIAL IV SCH ×2 (02:38→11:43)
[2021-08-03] MEDS: MEROPENEM 500 MG in SODIUM CHLORIDE 0.9% 100 ML IV SCH ×2 (02:39→12:27)
[2021-08-03] MEDS: HYDROmorphone 2 MG/1 ML VIAL IV PRN (05:26)
[2021-08-03] MEDS: ACETYLCYSTEINE 20% 800 MG/4 ML VIAL RESP TX SCH ×3 (07:29→15:50)
[2021-08-03] MEDS: ALBUTEROL 2.5 MG/3 ML NEB RESP TX SCH ×2 (07:29→11:13)
[2021-08-03] MEDS: TOBRAMYCIN 80 MG/2 ML VIAL RESP TX SCH (07:55)
[2021-08-03] MEDS: ALBUTEROL 0.4 MG/ML 30 ML/BOTTLE PO SCH ×2 (09:00→15:50)
[2021-08-03] MEDS: SUCRALFATE 1 GM TABLET PO SCH ×2 (09:31→11:37)
[2021-08-03] MEDS: LACTATED RINGERS 1,000 ML IV SCH (09:31)
[2021-08-03] MEDS: INSULIN LISPRO 100 UNIT/ML SUBCUT SCH ×2 (09:31→11:59)
[2021-08-03] MEDS ORDERED: FUROSEMIDE 40 MG TABLET PO SCH (10:00)
[2021-08-03] MEDS: GABAPENTIN 300 MG CAPSULE PO SCH ×2 (11:34→16:36)
[2021-08-03] MEDS: hydroCHLOROthiazide 25 MG TABLET PO SCH (11:37)
[2021-08-03] MEDS: METHOCARBAMOL 750 MG TABLET PO SCH (11:37)
[2021-08-03] MEDS: carvediloL 25 MG TABLET PO SCH (11:37)
[2021-08-03] MEDS: ZINC GLUCONATE 50 MG TABLET PO SCH (11:37)
[2021-08-03] MEDS: COENZYME Q10 100 MG CAPSULE PO SCH (11:38)
[2021-08-03] MEDS: THEOPHYLLINE ER 300 MG TABLET PO SCH (11:38)
[2021-08-03] MEDS: LOSARTAN 25 MG TABLET PO SCH (11:38)
[2021-08-03] MEDS: BENZONATATE 100 MG CAPSULE PO SCH ×2 (11:38→16:36)
[2021-08-03] MEDS: ASPIRIN EC 81 MG TABLET PO SCH (11:39)
[2021-08-03] MEDS: hydrALAZINE 10 MG TABLET PO SCH ×2 (11:39→16:36)
[2021-08-03] MEDS: MULTIVITAMIN (CENTRUM) TABLET PO SCH (11:40)
[2021-08-03] MEDS: BACILLUS COAGULANS CAPLET PO SCH (11:41)
[2021-08-03] MEDS: MAGNESIUM CHLORIDE 64 MG TABLET PO SCH (11:41)
[2021-08-03] MEDS: MONTELUKAST 10 MG TABLET PO SCH (11:41)
[2021-08-03] MEDS: FLUCONAZOLE 100 MG TABLET PO SCH (11:41)
[2021-08-03] MEDS: PANTOPRAZOLE 40 MG VIAL IV SCH (11:42)
[2021-08-03] MEDS: DOCUSATE SODIUM 100 MG CAPSULE PO SCH (11:42)
[2021-08-03] MEDS: X PO SCH ×2 (11:43→13:54)
[2021-08-03] MEDS: FLUTICASONE FUROATE VILANTEROL INH SCH (11:58)
[2021-08-03] MEDS: POTASSIUM CHLORIDE 20 MEQ TABLET PO SCH (11:58)
[2021-08-03] MEDS: POLYETHYLENE GLYCOL POWDER 17 GM PACK PO SCH (11:58)
[2021-08-03] MEDS: [UNRECOGNIZED DRUG - OTHER] INH SCH (11:58)
[2021-08-03] MEDS: RIVAROXABAN 10 MG TABLET PO SCH (13:55)
[2021-08-03] MEDS: ONDANSETRON 4 MG/2 ML VIAL IV PRN (14:43)
[2021-08-03 16:34] VITALS: BP 132/86
== END 2021-08-03 16:50 | disposition home health service (06) | DRG 191 ==
LOC: N.ED 15:33 → SUATTDRO 17:26 → N.EDINP 17:26 → N.TELEN 19:48
PROVIDERS: ADMIT Internal Medicine; ATTEND Emergency Medicine